=== PATIENT | male | born 1985 | race Caucasian/White ===

== ENCOUNTER 2018-09-26 21:50 | Emergency (ER) | payer OTHER ==
[2018-09-26 21:54] VITALS: BP 116/60
--- NOTE | 2018-09-26 21:59 | UC ---
Throat Pain/Nasal Jasen HPI - HPI Summary HPI Summary: 32 yo male presents with right sided sore throat since earlier today. He tells me that he had his girlfriend look in his throat and she saw a white spot. He also thinks he has felt an enlarged lymph node on the right side of his throat. He has not taken anything OTC for his symptoms. He is concerned about strep. He is eating, drinking, and tolerating po without difficulty. Denies fever, chills , rash, cough, sinus symptoms. - History of Current Complaint Chief Complaint: UCRespiratory Stated Complaint: SORE THROAT Time Seen by Provider: 09/26/18 21:59 Hx Obtained From: Patient Onset/Duration: Sudden Onset Severity: Mild Pain Intensity: 4 Pain Scale Used: 0-10 Numeric - Allergies/Home Medications Allergies/Adverse Reactions: Allergies Allergy/AdvReac Type Severity Reaction Status Date / Time No Known Allergies Allergy Verified 09/26/18 21:54 Home Medications: Home Medications Ibuprofen TAB* [Advil TAB*] 400 mg PO ONCE PRN 09/26/18 [History Confirmed 09/26] PMH/Surg Hx/FS Hx/Imm Hx - Additional Past Medical History Additional PMH: None - Surgical History Surgical History: Yes Surgery Procedure, Year, and Place: HERNIA REPAIR - Family History Known Family History: Positive: None - Social History Occupation: Employed Full-time Lives: With Family Alcohol Use: Occasionally Substance Use Type: None Smoking Status (MU): Never Smoked Tobacco Review of Systems All Other Systems Reviewed And Are Negative: Yes Constitutional: Positive: Negative Skin: Positive: Negative Eyes: Positive: Negative ENT: Positive: Sore Throat Respiratory: Positive: Negative Cardiovascular: Positive: Negative Gastrointestinal: Positive: Negative Neurovascular: Positive: Negative Neurological: Positive: Negative Psychological: Positive: Negative Physical Exam - Summary Physical Exam Summary: GENERAL: NAD. WDWN. No pain distress. SKIN: No rashes, sores, lesions, or open wounds. HEENT: Head: AT/NC Eyes: EOM intact. Conjunctiva clear without inflammation or discharge. Ears: Hearing grossly normal. TMs intact, no bulging, erythema, or edema. Nose: Nasal mucosa pink and moist. NTTP maxillary and frontal sinus. Throat: Posterior oropharynx without exudates, erythema, or tonsillar enlargement. Uvula midline. NECK: Supple. Shoddy LAD right tonsillar with very mild TTP. CHEST: CTAB. No r/r/w. No accessory muscle use. Breathing comfortably and in no distress. CV: RRR. Without m/r/g. Pulses intact. Cap refill <2seconds NEURO: Alert. PSYCH: Age appropriate behavior. Triage Information Reviewed: Yes Vital Signs: Initial Vital Signs Temp 98.6 F 09/26/18 21:51 Pulse 58 09/26/18 21:51 Resp 16 09/26/18 21:51 BP 116/60 09/26/18 21:51 Pulse Ox 97 09/26/18 21:51 Vital Signs: Temp Pulse Resp BP Pulse Ox 98.6 F 58 16 116/60 97 09/26/18 21:51 09/26/18 21:51 09/26/18 21:51 09/26/18 21:51 09/26/18 21:51 Laboratory Tests 09/26/18 22:09 Group A Strep Rapid Negative Vital Signs Reviewed: Yes Throat Pain/Nasal Course/Dx - Course Course Of Treatment: POC strep negative. Suspect viral pharyngitis. Advised to try tylenol/ibuprofen as directed for discomfort and warm salt water gargles. If symptoms do not improve in the next 4 -5 days to be rechecked. - Differential Dx/Diagnosis Provider Diagnosis: Pharyngitis Discharge - Sign-Out/Discharge Documenting (check all that apply): Patient Departure All imaging exams completed and their final reports reviewed: No Studies - Discharge Plan Condition: Stable Disposition: HOME Patient Education Materials: Pharyngitis (ED) Referrals: No Primary Care Phys,NOPCP [Primary Care Provider] - Additional Instructions: If you develop a fever, shortness of breath, chest pain, new or worsening symptoms - please call your PCP or go to the ED immediately. Your strep test was negative. I suspect your symptoms are viral and should improve with time and rest. May take tylenol/ibuprofen as directed for discomfort. If your symptoms do not improve in 4-5 days or worsen , please be rechecked. - Billing Disposition and Condition Condition: STABLE Disposition: Home
== END 2018-09-26 22:25 | disposition home or self-care (01) ==
LOC: UCEAST 21:50
DX: J02.9 Acute pharyngitis, unspecified (principal)
CPT/HCPCS: 87651; 99201; G0463